=== PATIENT | female | born 1980 | race Two or more races ===

== ENCOUNTER 2020-05-23 14:20 | Emergency (ER) | payer SELFPAY ==
[~2020-05-23] VITALS: Ht 152.4 cm; Wt 84.4 kg
--- NOTE | 2020-05-23 14:20 | NUR ---
CAME IN FOR ABDOMINAL PAIN X 2 1/2 WKS,INTERMITTENT NAUSEA/VOMITING, TO ER BED 9, HOOKED TO MONITOR, CHANGED TO HOSP GOWN, WARM BLANKET PROVIDED, AWAITING MD SAHU
--- NOTE | 2020-05-23 15:23 | NUR ---
LIT GAMA AT BEDSIDE
[2020-05-23] MEDS ORDERED: ONDANSETRON HCL/PF 4 MG/2 ML VIAL ONE (15:27)
[2020-05-23] MEDS: IV NS 0.9% 1,000 ML BAG IV ONE (15:37)
[2020-05-23] MEDS: ONDANSETRON HCL/PF 4 MG/2 ML VIAL IVP ONE (15:37)
[2020-05-23] MEDS ORDERED: KETOROLAC TROMETHAMINE INJ 30 MG/ML VIAL ONE (15:38)
[2020-05-23] MEDS: KETOROLAC TROMETHAMINE INJ 30 MG/ML VIAL IV ONE (15:41)
[2020-05-23 15:42] LABS: BASOPHILS # (AUTO) 0.1 /CMM (0.0-0.2); BASOPHILS % (AUTO) 0.7 % (0.0-2.0); EOSINOPHILS % (AUTO) 1.3 % (0.0-6.0); HEMATOCRIT 40 % (33-45); HEMOGLOBIN 13.7 g/dL (11.5-14.8); LYMPHOCYTES # (AUTO) 1.5 /CMM (0.8-4.8); LYMPHOCYTES % (AUTO) 16.5 % (20.0-44.0); MEAN CORPUSCULAR HGB CONC 34 g/dl (31.0-36.0); MEAN CORPUSCULAR VOLUME 89 fL (82-100); MONOCYTES # (AUTO) 0.5 /CMM (0.1-1.30); MONOCYTES % (AUTO) 5.8 % (2.0-12.0); NEUTROPHILS % (AUTO) 75.7 % (43.0-81.0); PLATELET COUNT (AUTO) 368 /CMM (150-450); RED BLOOD CELL COUNT(AUTO) 4.54 MIL/uL (4.0-5.2); WHITE BLOOD COUNT (AUTO) 9.3 K/uL (4.3-11.0)
[2020-05-23 15:53] LABS: CREATININE 0.8 mg/dL (0.6-1.3); POTASSIUM 3.9 mmol/L (3.5-5.1)
[2020-05-23 16:01] LABS: ALBUMIN 3.8 g/dL (3.4-5.0); BILIRUBIN,DIRECT 0.1 mg/dL (0.0-0.2); BILIRUBIN,TOTAL 0.3 mg/dL (0.2-1.0); TOTAL PROTEIN, SERUM 7.2 g/dL (6.4-8.2)
[2020-05-23 16:02] LABS: APPEARANCE,URINE CLEAR (CLEAR); BILIRUBIN,URINE NEGATIVE (NEGATIVE); BLOOD, URINE SMALL Ery/uL (NEGATIVE); COLOR,URINE YELLOW (YELLOW); KETONES,URINE NEGATIVE (NEGATIVE); LEUKOCYTE ESTERASE ,URINE NEGATIVE (NEGATIVE); NITRITE, URINE NEGATIVE (NEGATIVE); PROTEIN,URINE NEGATIVE (NEGATIVE); UGLUCOSE NEGATIVE (NEGATIVE); UROBILINOGEN,URINE 0.2 EU/dL (0.2)
--- NOTE | 2020-05-23 16:24 | NUR ---
PATIENT IN BED AWAKE, HOOKED TO MONITOR, WILL CONTINUE TO MONITOR ACCORDINGLY
--- NOTE | 2020-05-23 17:16 | NUR ---
IV removed. Catheter intact and site benign. Pressure and 4x4 applied to site. No bleeding noted.Patient discharged to home in stable condition. Written and verbal after care instructions given. Patient verbalizes understanding of instruction.
[2020-05-23 17:18] VITALS: BP 138/79
== END 2020-05-23 17:20 | disposition home or self-care (01) ==
LOC: ER 14:34
DX: K80.80 Other cholelithiasis without obstruction (principal); R11.10 Vomiting, unspecified; Z90.89 Acquired absence of other organs; Z98.890 Other specified postprocedural states
CPT/HCPCS: 36415; 76705; 80048; 80076; 81001; 83690; 84703; 85025; 96361; 96374; 96375; 99284; J1885; J2405; J7030; 81000-TC